=== PATIENT | male | born 1970 | race Caucasian/White ===

== ENCOUNTER 2018-01-23 18:36 | Observation (INO) | payer OTHER ==
[~2018-01-23] VITALS: Ht 182.9 cm; Wt 150.8 kg
[~2018-01-23 18:36] MED LIST: ASPIR-TRIN325 M1 PO; FLEXERIL10 MG PO; LIDODERM 5% P1 PATCH TD; NOHOMEMEDS; NORCO 10/3251 TABLET PO; PREDNISONE20 MG PO
[2018-01-23 19:12] LABS: HEMATOCRIT 42.8 % (38.0-50.0); HEMOGLOBIN 14.9 G/DL (12.5-16.6); MCH 31.4 PG (29.0-34.0); MCHC 34.8 G/DL (30.0-36.0); MCV 90.1 FL (86-99); PLATELET COUNT 237 K/uL (156-360); RBC DIS.WIDTH-CV 13.3 % (11.8-14.6); RBC DIS.WIDTH-SD 44.1 % (39-53); RED BLOOD COUNT 4.75 M/uL (4.00-5.50)
[2018-01-23 19:22] LABS: CHLORIDE 103 mEq/L (99-109); POTASSIUM 4.1 mEq/L (3.7-5.4); SODIUM 139 mEq/L (136-147)
[2018-01-23 19:23] LABS: GLUCOSE 110 mg/dL (70-99)
[2018-01-23 19:27] LABS: CREATININE 0.9 mg/dL (0.6-1.3); GFR ESTIMATE (CALCULATED) > 59 mL/min/ (58.99-99999)
[2018-01-23 19:28] LABS: UREA NITROGEN (BUN) 17 mg/dL (9-23)
[2018-01-23] MEDS ORDERED: FLEXERIL10 MG PO (22:09)
[2018-01-23] MEDS ORDERED: AUGMENTIN875 MG PO (22:10)
[2018-01-23] MEDS ORDERED: BUSPAR30 MG PO (22:10)
[2018-01-23] MEDS ORDERED: CELEXA20 MG PO (22:10)
[2018-01-23] MEDS ORDERED: HYDROMET SYRUP480 ML PO (22:10)
[2018-01-23] MEDS ORDERED: ABILIFY5 MG PO (22:11)
[2018-01-23] MEDS ORDERED: VOLTAREN75 MG PO (22:11)
[2018-01-23] MEDS ORDERED: ULTRAM50 MG PO (22:11)
[2018-01-23 22:52] LABS: TROP-I INTERPRETATION NEGATIVE; TROPONIN-I < 0.01 ng/mL (0.0-0.30)
[2018-01-24 01:37] VITALS: BP 136/69
[2018-01-24 01:38] LABS: TROP-I INTERPRETATION NEGATIVE; TROPONIN-I < 0.01 ng/mL (0.0-0.30)
[2018-01-24 08:51] VITALS: BP 132/65
[2018-01-24 09:31] LABS: CHLORIDE 104 MEQ/L (99-109); CREATININE 0.9 MG/DL (0.6-1.3); GFR ESTIMATE (CALCULATED) > 59 mL/min/ (58.99-99999); GLUCOSE 103 mg/dL (70-99); POTASSIUM 4.2 MEQ/L (3.7-5.4); SODIUM 139 MEQ/L (136-147); UREA NITROGEN (BUN) 14 mg/dL (9-23)
[2018-01-24 09:37] LABS: TROP-I INTERPRETATION NEGATIVE; TROPONIN-I < 0.01 ng/mL (0.0-0.30)
[2018-01-24 12:02] VITALS: BP 142/74
[2018-01-24] MEDS ORDERED: VENTOLIN HFA18 GM IH (12:37)
[2018-01-24] MEDS ORDERED: FLONASE16 G1 BOTH NARES (12:37)
== END 2018-01-24 14:23 | disposition home or self-care (01) ==
LOC: EME 18:36 → 4SOUTH 23:56 → EDOF 23:56 → ENRESERV 01-24 → 4SOUTH 01-24 01:22
PROVIDERS: Emergency Medicine; Hospitalist; Nurse Practitioner Adult Health
DX: R55 Syncope and collapse (principal); R05 Cough; E66.9 Obesity, unspecified; F41.9 Anxiety disorder, unspecified; F32.9 Major depressive disorder, single episode, unspecified; F17.210 Nicotine dependence, cigarettes, uncomplicated; J32.9 Chronic sinusitis, unspecified; Z82.49 Family history of ischemic heart disease and other diseases of the circulatory system; Z83.3 Family history of diabetes mellitus
CPT/HCPCS: 70450; 71046; 80048; 84484; 85027; 93005; 93880; 94640 76; 95819; 99202; 99281; 99285; G0378; J1644; J7030